=== PATIENT | male | born 2000 | race Two or more races ===

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

== ENCOUNTER 2020-01-28 23:27 | Emergency (ER) | payer BC ==
[~2020-01-28] VITALS: Ht 180.3 cm; Wt 72.6 kg
[2020-01-28 23:29] VITALS: BP 127/65
== END 2020-01-28 23:57 | disposition home or self-care (01) ==
LOC: ER 23:28
DX: L98.498 Non-pressure chronic ulcer of skin of other sites with other specified severity (principal); F42.4 Excoriation (skin-picking) disorder; F15.10 Other stimulant abuse, uncomplicated